=== PATIENT | male | born 2000 | race Caucasian/White ===

== ENCOUNTER 2024-05-03 16:32 | Outpatient (CLI) | payer BC, SELFPAY | END 2024-05-03 16:33 | disposition home or self-care (01) | PROVIDERS: Visit Provider Family Medicine | DX: K29.70 Gastritis, unspecified, without bleeding (principal); Z13.6 Encounter for screening for cardiovascular disorders | CPT/HCPCS: 80048; 80061 ==

== ENCOUNTER 2024-11-25 09:17 | Outpatient (CLI) | payer BC, SELFPAY ==
--- NOTE | 2024-11-25 09:45 | CRLHL7_ITS ---
For Patients: As a result of the Century Cures Act, medical imaging exams and procedure reports are released immediately into your electronic medical record. You may view this report before your referring provider. If you have questions, please contact your health care provider. CLINICAL HISTORY: Abdominal pain FINDINGS: Liver measures 16.1 centimeters increased echogenicity of the liver. There is a normal appearance of the hepatic IVC and proximal abdominal aorta. There is no evidence of ascites. The gallbladder is of normal size and there is no evidence of intraluminal stones or sludge. The gallbladder wall measures 2 mm in thickness. Common bile duct is poorly seen. Pancreas poorly seen. Right kidneys unremarkable. No intrahepatic biliary dilatation visualized. IMPRESSION: Limited exam. Hepatic steatosis. Dictated by Nanci Joseph MD @ 11/28/2024 7:25:11 AM (Electronically Signed)
== END 2024-11-25 09:18 | disposition home or self-care (01) ==
LOC: US 09:18
PROVIDERS: PCP Family Medicine; Visit Provider Family Medicine
DX: R10.9 Unspecified abdominal pain (principal); K76.0 Fatty (change of) liver, not elsewhere classified
CPT/HCPCS: 76705

== ENCOUNTER 2024-12-09 09:47 | Outpatient (CLI) | payer BC, SELFPAY ==
--- NOTE | 2024-12-09 11:46 | P.ANES_ITS ---
Anesthesia Charges Start Date/Time Anesthesia Start Date: 12/09/24 Anesthesia Start Time: 11:25 Stop Date/Time Anesthesia Stop Date: 12/09/24 Anesthesia Stop Time: 11:44 Coding CPT Codes CPT Codes: ANES UPR GI NDSC PX NOS - 56210 ([id number]) P2 - PATIENT W/MILD SYST DISEASE, QK - PRODUCTION GRIP 2-4 CNCRNT ANES PROC, QX - DECORATING MACHINE OPERATOR SVC W/ MD MED DIRECTION
--- NOTE | 2024-12-09 11:46 | W.ANESCHARGE ---
Anesthesia Charges Start Date/Time Anesthesia Start Date: 12/09/24 Anesthesia Start Time: 11:25 Stop Date/Time Anesthesia Stop Date: 12/09/24 Anesthesia Stop Time: 11:44 Coding CPT Codes CPT Codes: ANES UPR GI NDSC PX NOS - 67046 ([id number]) P2 - PATIENT W/MILD SYST DISEASE, QK - INSTITUTIONAL NUTRITION CONSULTANT 2-4 CNCRNT ANES PROC, QX - LINE CAMERA OPERATOR SVC W/ MD MED DIRECTION
--- NOTE | 2024-12-09 11:50 | P.ANES_ITS ---
Anesthesia Charges Start Date/Time Anesthesia Start Date: 12/09/24 Anesthesia Start Time: 11:25 Stop Date/Time Anesthesia Stop Date: 12/09/24 Anesthesia Stop Time: 11:44 Coding CPT Codes CPT Codes: ANES UPR GI NDSC PX NOS - 50304 ([id number]) P2 - PATIENT W/MILD SYST DISEASE, QK - TILE TRIMMER 2-4 CNCRNT ANES PROC, QX - DISINTEGRATOR FEEDER SVC W/ MD MED DIRECTION
--- NOTE | 2024-12-09 11:50 | W.ANESCHARGE ---
Anesthesia Charges Start Date/Time Anesthesia Start Date: 12/09/24 Anesthesia Start Time: 11:25 Stop Date/Time Anesthesia Stop Date: 12/09/24 Anesthesia Stop Time: 11:44 Coding CPT Codes CPT Codes: ANES UPR GI NDSC PX NOS - 07102 ([id number]) P2 - PATIENT W/MILD SYST DISEASE, QK - GASKET INSPECTOR 2-4 CNCRNT ANES PROC, QX - PCB DESIGN ENGINEER SVC W/ MD MED DIRECTION
== END 2024-12-09 09:48 | disposition home or self-care (01) ==
LOC: OP CLINIC 09:47
PROVIDERS: PCP Family Medicine; Visit Provider Surgery
DX: K21.9 Gastro-esophageal reflux disease without esophagitis (principal)
CPT/HCPCS: 00731; 43239; 88305; J2704; J3490